=== PATIENT | male | born 1950 | race American Indian/Alaskan Native ===

== ENCOUNTER 2019-03-24 03:45 | Emergency (ER) | payer MEDICARE ==
[2019-03-24] MEDS ORDERED: ONDANSETRON 4 MG ODT TAB PO ONE (04:22)
--- NOTE | 2019-03-24 06:04 | Emergency Department Report ---
ED General Adult HPI - General Chief complaint: Hypoglycemia Stated complaint: N/V/HYPOGLYCEMIA Time Seen by Provider: 03/24/19 04:17 Source: EMS Mode of arrival: Ambulatory Limitations: No Limitations - History of Present Illness Initial comments: Patient is a 68-year-old gentleman who is presenting with hypoglycemic episode. Patient alerted his son stated that he was having some chest discomfort. Patient had had some nausea with mild vomiting all yesterday. EMS was called and during their assessment of the patient's chest discomfort today found that the patient's blood glucose was 28. Patient was given juice and a half amp of D50. Patient states after being given these medications his sugar improved and his chest pain resolved. Patient denies any abdominal pain at this time. - Related Data Previous Rx's Medication Instructions Recorded Last Taken Type Ondansetron [Zofran Odt] 4 mg PO Q8HR #10 tab.rapdis 03/24/19 Unknown Rx Allergies Allergy/AdvReac Type Severity Reaction Status Date / Time No Known Allergies Allergy Verified 03/24/19 04:13 ED Review of Systems ROS: Stated complaint: N/V/HYPOGLYCEMIA Other details as noted in HPI Comment: All other systems reviewed and negative ED Past Medical Hx - Past Medical History Previous Medical History?: Yes Hx Hypertension: Yes Hx Diabetes: Yes - Surgical History Past Surgical History?: Yes Additional Surgical History: Spine 2018 - Social History Smoking Status: Never Smoker Substance Use Type: None - Medications Home Medications: Home Medications Medication Instructions Recorded Confirmed Last Taken Type Ondansetron [Zofran Odt] 4 mg PO Q8HR #10 tab.rapdis 03/24/19 Unknown Rx ED Physical Exam - General Limitations: No Limitations General appearance: alert, in no apparent distress - Head Head exam: Present: atraumatic, normocephalic - Eye Eye exam: Present: normal appearance, PERRL, EOMI - ENT ENT exam: Present: mucous membranes moist - Neck Neck exam: Present: normal inspection - Respiratory Respiratory exam: Present: normal lung sounds bilaterally. Absent: respiratory distress, wheezes, rales, rhonchi - Cardiovascular Cardiovascular Exam: Present: regular rate, normal rhythm, normal heart sounds. Absent: systolic murmur, diastolic murmur, rubs, gallop - GI/Abdominal GI/Abdominal exam: Present: soft, normal bowel sounds. Absent: distended, ten derness, guarding, rebound - Rectal Rectal exam: Present: deferred - Extremities Exam Extremities exam: Present: normal inspection - Back Exam Back exam: Present: normal inspection - Neurological Exam Neurological exam: Present: alert, oriented X3 - Psychiatric Psychiatric exam: Present: normal affect, normal mood - Skin Skin exam: Present: warm, dry, intact, normal color. Absent: rash ED Course Vital Signs 03/24/19 03/24/19 03/24/19 04:00 04:13 04:19 Temperature 97.6 F Pulse Rate 80 83 Respiratory 12 20 20 Rate Blood Pressure 155/68 155/68 O2 Sat by Pulse 99 97 99 Oximetry 03/24/19 05:00 Temperature Pulse Rate 78 Respiratory 20 Rate Blood Pressure 151/68 O2 Sat by Pulse 96 Oximetry ED Medical Decision Making - Lab Data Lab Results 03/24/19 03/24/19 Range/Units 04:17 05:36 POC Glucose 126 H 115 H (70-105) - Medical Decision Making Patient was given juice and some food his blood sugar remains within normal limits Critical care attestation.: If time is entered above; I have spent that time in minutes in the direct care of this critically ill patient, excluding procedure time. ED Disposition Clinical Impression: Hypoglycemia Disposition: DC-01 TO HOME OR SELFCARE Is pt being admited?: No Does the pt Need Aspirin: No Condition: Stable Instructions: Diabetic Hypoglycemia (ED) Time of Disposition: 06:08
[2019-03-24 06:22] VITALS: BP 126/56
== END 2019-03-24 06:40 | disposition home or self-care (01) ==
LOC: ED 03:45
DX: E11.649 Type 2 diabetes mellitus with hypoglycemia without coma (principal); I10 Essential (primary) hypertension; Z98.890 Other specified postprocedural states; Z79.899 Other long term (current) drug therapy
CPT/HCPCS: 82962; 93005; 93010; Q0162